=== PATIENT | male | born 1975 | race Caucasian/White ===

== ENCOUNTER 2016-09-29 08:45 | Day surgery (SDC) | payer OTHER ==
[~2016-09-29] VITALS: Ht 190.5 cm; Wt 113.0 kg
[~2016-09-29 08:45] MED LIST: 0.9% Sodium Chloride 1,000 ML IV PRN; ASCO500C6 PO; ATRINH INH; CHOL200047 PO; DEXT5TAB23 PO; DONE10TA42 PO; GARL500C PO; GINK120C PO; IBUP800T28 PO; OMEG500C PO; RANI150T11 PO; RESV100C PO; Sodium Chloride LOK Flush 10 mL Syringe IV PRN; THIO300C PO; ZINC50TA4 PO; fentaNYL-PF 50 mCg/mL 2 mL Inj IVPUSH PRN
[2016-09-29 09:14] VITALS: BP 138/96; PULSE 84; RESP 16; O2SAT 99
--- NOTE | 2016-09-29 10:51 | PCM.ENDEGD ---
EGD Date of Service: September 29, 2016 Physician Romeo Vazquez MD Pre Procedure Diagnosis: Reflux Post Procedure Dx & Findings: Esophagitis scarring of the GE junction Procedure Esophagogastroduodenoscopy PROCEDURE IN DETAIL: After proper sedation, Olympus video endoscope was inserted into patient's mouth and esophagus was successfully intubated. Scope introduced esophagus. Esophagus showed normal shiny whitish mucosa consistent with squamous cell component. There was a 2 cm hiatal hernia. Z line was irregular intact at 43 cm from the incisors. There was edema inflammation and scarring. Biopsies obtained. Scope further advanced to the stomach. In the stomach, there were some edema irritation and redness consistent with gastropathy in the antrum and the body. Biopsies were Obtained. Cardia fundus body antrum pylorus were all visualized. Retroflexion was done. Stomach was easily inflated and deflatable using air. Scope further events to the distal duodenum. Duodenum revealed normal villous structures with normal appearing folds without any mass ulcer erosion. Impression 2 cm hiatal hernia Esophagitis with scarring status post biopsies Gastritis Recommendation Follow up in GI clinic. Consider Prilosec versus Zantac. Once the patient follows up, I would auto club travel counselor the patient on Protonix and cons of these medications. Presedation Assessment Risks and Benefits Informed consent was obtained from the patient after all risks and benefits including but not limited to drug reaction, infection, pain, bleeding, perforation, as well as alternatives were discussed. Patient monitoring Continuous pulse oximetry, cardiac monitoring, blood pressure monitoring, IV access, and oxygen at 2L per nasal cannula. Periprocedural Fentanyl: Fentanyl 100mcg Incrementally Midazolam: Midazolam 10mg Incrementally Diphenhydramine: Diphenhydramine 25 mg IV Complications There were no periprocedural complications identified. Post Procedure Plan Post Procedure Recommendations 1. Restrict activities today. 2. Resume normal activities in the morning. 3. Resume medications. 4. GERD behavioral modification: - Avoid fatty, acidic, spicy, large meals - Do not lie down after meals - Do not eat or drink anything for at least 2 1/2 hours before going to bed at night - Discontinue tobacco and alcohol - Decrease or avoid caffeine - Avoid chocolate and mints - Decrease weight - Avoid aspirin and non steroidal anti-inflammatory agents (NSAID) such as Aleve, Advil, Mobic, Naproxen, Ibuprofen, etc 5. Add proton pump inhibitor. Take 30 minutes before 1st meal of the day. 6. Patient informed of normal post procedure side effects as bloating, drowsiness, blood streaking in the stool 7. If gastric biopsy reveal H.pylori, continue with appropriate treatment 8. If small bowel biopsy reveals celiac, continue with appropriate treatment 9. Please don't hesitate to call me with any questions Romeo Vazquez MD September 29, 2016 10:50
[2016-09-29 11:01] VITALS: BP 136/90; PULSE 81; RESP 16; O2SAT 95
[2016-09-29 11:15] VITALS: BP 121/79; PULSE 79; RESP 16; O2SAT 100
--- NOTE | 2016-09-30 14:38 | PATH ---
SURGICAL PATHOLOGY Attending Physician:Romeo Vazquez M.D. CASE STATUS: Signed Out PATIENT NAME: ISAURA CONRAD PID: [id number] : 1975 DATE COLLECTED:09/29/2016 21:05 SPECIMEN: 1: Gastric, Biopsy 2: Esophagus, Biopsy CLINICAL HISTORY: 1). GASTRIC BIOPSY 2). DISTAL ESOPHAGUS BIOPSY FINAL DIAGNOSIS: 1.GASTRIC BIOPSY: MILD CHRONIC GASTRITIS INVOLVING ANTRAL MUCOSA. Negative for evidence of Helicobacter. Negative for intestinal metaplasia. Negative for dysplasia and malignancy. 2.DISTAL ESOPHAGUS BIOPSY: SQUAMOUS MUCOSA AND GASTRIC CARDIA-TYPE MUCOSA WITH CHRONIC ACTIVE INFLAMMATION AND REACTIVE SQUAMOUS EPITHELIAL CHANGES. NEGATIVE FOR SPECIALIZED METAPLASIA OF FREED' S-TYPE ESOPHAGUS. Negative for dysplasia and malignancy. Rare esoinophil present within squamous epithelium consistent with changes of chronic reflux. ICD10 code K29.70 K21.0 GROSS DESCRIPTION: The specimen is received in two formalin filled containers labeled with the patient's name. 1). The specimen is sublabeled "gastric" and consists of 2 portions of tissue which aggregate to 0.3 x 0.2 x 0.2 CM. The specimen is entirely submitted in cassette 1A. 2). The specimen is sublabeled "distal esophagus" and consists of 3 portions of tissue which aggregate to 0.3 x 0.3 x 0.2 CM. The specimen is entirely submitted in cassette 2A. 09/29/2016 [facility] MICRO DESCRIPTION: See diagnosis. ICD-9 CODES: CPT CODES: 1: 35778 2: 03731 Electronically Signed Out Adán Hutchins MD [facility]ly [facility] Pathology [facility] [address], [place] [address] Technical component performed at [facility], [facility] [address], [place], [address]
== END 2016-09-29 23:59 | disposition home or self-care (01) ==
LOC: END 08:45
PROVIDERS: ATTEND Internal Medicine
DX: K29.50 Unspecified chronic gastritis without bleeding (principal); K21.0 Gastro-esophageal reflux disease with esophagitis; K44.9 Diaphragmatic hernia without obstruction or gangrene; E78.5 Hyperlipidemia, unspecified; F07.81 Postconcussional syndrome; Z87.820 Personal history of traumatic brain injury
CPT/HCPCS: 43239; 88305; G0500; J1200; J2250; J3010